=== PATIENT | male | born 1995 | race Caucasian/White ===

== ENCOUNTER 2021-05-06 15:27 | Emergency (ER) | payer MEDICAID ==
[~2021-05-06] VITALS: Ht 170.2 cm; Wt 65.3 kg
[2021-05-06] MEDS ORDERED: MECLIZINE HCL 25 MG TAB PO ONE (18:30)
[2021-05-06 19:05] LABS: Basophils # (auto) 0.1 10 ^3/uL (0-0.2); Basophils % (auto) 0.7 % (0.0-2.0); Eosinophils # (auto) 0.1 10 ^3/uL (0-0.8); Eosinophils % (auto) 1.4 % (0.0-7.0); Hematocrit 48.2 % (41.0-53.0); Hemoglobin 15.9 g/dL (13.5-17.5); Lymphocytes # (auto) 2.3 10 ^3/uL (0.4-5.4); Lymphocytes % (auto) 26.6 % (10.0-50.0); Mean Corpuscular Hemoglobin 27.7 pg (28.0-32.0); Mean Corpuscular Volume 83.8 fL (80.0-100.0); Monocytes # (auto) 0.6 10 ^3/uL (0-1.3); Monocytes % (auto) 6.6 % (0.0-12.0); Neutrophils # (auto) 5.7 10 ^3/uL (1.6-8.6); Neutrophils % (auto) 64.7 % (37.0-80.0); Red Blood Cells 5.75 10^6/uL (4.5-5.90); Red Cell Distribution Width 14.2 % (11.8-14.3); White Blood Cell 8.8 10^3/uL (4.4-10.8)
[2021-05-06 19:22] LABS: Albumin 4.2 g/dL (3.4-5.0); Calcium 8.7 mg/dL (8.5-10.1); Potassium 4.2 mmol/L (3.5-5.1)
[2021-05-06 19:26] LABS: BUN/Creatinine Ratio 13.4; Bilirubin, Total 0.8 mg/dL (0.2-1.0); Total Protein 7.7 g/dL (6.4-8.2)
[2021-05-07 00:26] VITALS: BP 102/72
== END 2021-05-07 01:09 | disposition home or self-care (01) ==
LOC: ER 15:27
DX: R42 Dizziness and giddiness (principal); F12.10 Cannabis abuse, uncomplicated; F17.210 Nicotine dependence, cigarettes, uncomplicated
CPT/HCPCS: 36415; 70450; 74176; 80053; 85025

== ENCOUNTER 2021-08-14 19:39 | Emergency (ER) | payer MEDICAID ==
[~2021-08-14] VITALS: Ht 170.2 cm; Wt 66.7 kg
[2021-08-14 19:39] VITALS: BP 125/77
[2021-08-14] MEDS ORDERED: IBUP800T27 PO (20:27)
[2021-08-14] MEDS ORDERED: AMOX500C2 PO (20:27)
[2021-08-14] MEDS ORDERED: KETOROLAC TROMETH 30 MG/ML 1ML VIAL IM ONE (20:30)
[2021-08-14] MEDS ORDERED: methylPREDNISolone SOD SUCC 125 MG/2 ML VL IM ONE (20:30)
== END 2021-08-14 21:11 | disposition home or self-care (01) ==
LOC: ER 19:41
DX: H66.92 Otitis media, unspecified, left ear (principal); F17.210 Nicotine dependence, cigarettes, uncomplicated; F12.10 Cannabis abuse, uncomplicated
CPT/HCPCS: 96372; 99284; J1885; J2930